=== PATIENT | female | born 1955 | race Caucasian/White ===

== ENCOUNTER → 2016-11-11 | Outpatient (CLI) | payer BC ==
--- NOTE | 2016-11-11 14:25 | MG ---
Examination: Bilateral diagnostic mammogram. Clinical history: Mastodynia, fibroadenosis bilateral breasts. Technique: Digital CC and MLO views of both breasts were obtained. Computer aided detection analysis was performed and used during the interpretation. Comparison: 04/01/2016. Findings: The breasts are composed of scattered fibroglandular densities. Benign-appearing calcifications are noted in the breasts bilaterally. No suspicious mass, area of architectural distortion or suspicious cluster of microcalcifications is noted. Impression: 1. No mammographic evidence of malignancy. BI-RADS category 2-benign findings. Recommend routine annual screening mammogram. Diagnostic CAD was utilized and reviewed. * 0 (ZERO) - ASSESSMENT INCOMPLETE; ADDITIONAL IMAGING IS NEEDED. * 0C - ASSESSMENT INCOMPLETE, NEEDS ADDITIONAL IMAGING EVALUATION AND/OR PRIOR MAMMOGRAMS FOR COMPAR TANIYA. * 1/1 (ONE) - NEGATIVE. * 2/II (TWO) - BENIGN FINDINGS. * 3/III (THREE) - PROBABLY BENIGN FINDING; SHORT INTERVAL FOLLOW-UP SUGGESTED. * 4/IV (FOUR) - SUSPICIOUS ABNORMALITY; BIOPSY SHOULD BE CONSIDERED. * 5/V - HIGHLY SUSPICIOUS OF MALIGNANCY; BIOPSY SHOULD BE PERFORMED. * 6/IV - KNOWN BIOPSY PROVEN MALIGNANCY-APPROPRIATE ACTION SHOULD BE TAKEN. A NEGATIVE X-RAY REPORT SHOULD NOT DELAY BIOPSY IF A DOMINANT OR CLINICALLY SUSPICIOUS MASS IS PRESENT; 4 TO 8 PERCENT OF CANCERS ARE NOT IDENTIFIED BY X-RAY. A NEGATIVE REPORT MAY REINFORCE THE CLINICAL IMPRESSION. ADENOSIS AND DENSE BREASTS MAY OBSCURE AN UNDERLYING NEOPLASM. Reported By:
== END ==
LOC: RAD 12:54
PROVIDERS: ATTEND Obstetrics & Gynecology
DX: N60.21 Fibroadenosis of right breast (principal); N60.22 Fibroadenosis of left breast; N64.4 Mastodynia
CPT/HCPCS: 77066

== ENCOUNTER → 2016-12-08 | Outpatient (CLI) | payer BC ==
--- NOTE | 2016-12-08 16:31 | MRI ---
MRI SPINE LUMBAR WITHOUT CONTRAST CLINICAL HISTORY: 61-year-old female with chronic low back pain and radicular symptoms. COMPARISON: MR lumbar spine June 18, 2015. Technique: Multiplanar, multisequence MRI images of the lumbar spine were obtained without the admi nistration of contrast. FINDINGS: The most caudad, fully-formed intervertebral disc will be labeled L5-S1 for the purpose of this dictation. Mild straightening of lumbar lordosis as imaged. Alignment is maintained. Schmorl's node inferior endplate L5 with loss of disc space and signal at L4-L5. Type 2 endplate changes L4-L 5 and to a lesser degree at L5-S1. Remaining vertebral marrow and disc signal are preserved.. Cord s ignal is normal. The conus medullaris is normal in signal characteristics and morphology and termina paxton at the L1 level. T11-T12: Imaged in the sagittal plane only without central canal or neural foraminal stenosis per T12-L1: No central canal or neural foraminal stenosis. L1-L2: No central canal or neural foraminal stenosis. Mild facet arthropathy. L2-L3: Mild bilateral facet arthropathy with thickened ligamentum flavum. No significant central can al or neural foraminal stenosis. L3-L4: Central hyperintensity within the annular fibers consistent with fissure. Symmetric disc bulg e that produces moderate to severe bilateral subarticular recess stenosis. This just contacts the ve ntral and dorsal aspect of the transiting right L4 nerve root. No significant central canal or socorro inal stenosis. L4-L5: Severe bilateral facet hypertrophy with thickened ligamentum flavum combines with symmetric d isc bulge to produce severe, left greater than right, bilateral subarticular recess stenosis and mod erate to severe left with mild to moderate right neural foraminal stenosis. The ventral and dorsal a spect of the exiting left L4 nerve root with the dorsal aspect of the exiting right L4 nerve root ar e contacted by the degenerative disc and thickened flavum. L5-S1: Severe bilateral facet hypertrophy with thickened ligamentum flavum with trace fluid in the r ight facet joint. Buckled and thickened ligamentum flavum engages the dorsal aspect of the exiting L 5 nerve roots, right greater the left, with mild contour deformity on the right. Paraspinous soft tissues are unremarkable. IMPRESSION: 1. Multilevel degenerative disease and spondyloarthropathy that is most severe at L3-L4 with contact of the transiting L4 nerve roots bilaterally. 2. At L4-L5 the exiting right L4 nerve root is contacted along the ventral and dorsal aspect. 3. Central annular fissure at L3-L4. 4. Contact of the exiting L5 nerve roots bilaterally at L5-S1. 5. See level by level descriptions above. Reported By:
== END ==
LOC: RAD 14:48
PROVIDERS: ATTEND Internal Medicine
DX: M51.16 Intervertebral disc disorders with radiculopathy, lumbar region (principal)
CPT/HCPCS: 72148

== ENCOUNTER → 2017-11-03 | Outpatient (CLI) | payer BC ==
--- NOTE | 2017-11-03 14:38 | CT ---
CT OF THE ABDOMEN AND PELVIS WITHOUT CONTRAST HISTORY: Left lower quadrant pain for 2 weeks Comparison: None Technique: Multiple axial images of the abdomen and pelvis were obtained from the lung bases to the pubic symphy sis without the administration of IV contrast. Dose reduction techniques including Automated Exposur e Control (AEC) and adjustment of mA and kV were utlized. Findings: The heart is normal in size. There is no pericardial effusion. Lung bases are clear without focal con solidation, pleural effusion or pneumothorax. The sensitivity for focal lesion detection within the solid abdominal viscera is diminished without t he use of IV contrast. Liver and spleen are normal in size, and contour. Hepatic steatosis without focal lesion. No ductal d ilitation. Gallbladder absent. The pancreas is unremarkable. Adrenal glands are normal. Kidneys are n ormal in contour without hydronephrosis or nephrolithiasis. No bowel obstruction or inflammation. No abnormal appearing mesenteric or retroperitoneal lymph node s. No free fluid or fluid collections. The bladder is normal in appearance. Uterus not well seen. No free fluid or abnormal pelvic lymph nod es. No aggressive osseous lesions. IMPRESSION: 1. No source of patient's left lower quadrant pain is identified on this examination. 2. Hepatic steatosis. Reported By:
== END | disposition home or self-care (01) ==
LOC: RAD 09:10
PROVIDERS: ATTEND Internal Medicine
DX: R10.13 Epigastric pain (principal); R10.32 Left lower quadrant pain; R10.12 Left upper quadrant pain; K76.0 Fatty (change of) liver, not elsewhere classified
CPT/HCPCS: 74176

== ENCOUNTER → 2017-11-12 | Outpatient (CLI) | payer BC ==
--- NOTE | 2017-11-12 12:40 | MG ---
HISTORY: SCREENING Comparison: Previous mammograms dated 11/11/2016 and 04/01/2016 FINDINGS: Bilateral CC and MLO projections of the right and left breast were obtained. Scattered fibroglandula r tissue is seen to be present. No significant architectural distortion, mass or clustered microcalc ifications can be observed to suggest malignancy. No skin thickening or nipple retraction is appreci ated. No pathological lymphadenopathy can be identified. Benign-appearing calcifications scattered throughout the right and left breasts are observed. IMPRESSION: NO RADIOGRAPHIC EVIDENCE OF MALIGNANCY. ACR CATEGORY: 2 - benign findings. FOLLOW-UP EXAM 1 YEAR. Diagnostic CAD was utilized and reviewed. * 0 (ZERO) - ASSESSMENT INCOMPLETE; ADDITIONAL IMAGING IS NEEDED. * 1/1 (ONE) - NEGATIVE. * 2/II (TWO) - BENIGN FINDINGS. * 3/III (THREE) - PROBABLY BENIGN FINDING; SHORT INTERVAL FOLLOW-UP SUGGESTED. * 4/IV (FOUR) - SUSPICIOUS ABNORMALITY; BIOPSY SHOULD BE CONSIDERED. * 5/V - HIGHLY SUSPICIOUS OF MALIGNANCY; BIOPSY SHOULD BE PERFORMED. A NEGATIVE X-RAY REPORT SHOULD NOT DELAY BIOPSY IF A DOMINANT OR CLINICALLY SUSPICIOUS MASS IS PRESENT; 4 TO 8 PERCENT OF CANCERS ARE NOT IDENTIFIED BY X-RAY. A NEGA TIVE REPORT MAY REINFORCE THE CLINICAL IMPRESSION. ADENOSIS AND DENSE BREASTS MAY OBSCURE AN UNDERLY ING NEOPLASM. Reported By:
== END ==
LOC: RAD 10:23
PROVIDERS: ATTEND Obstetrics & Gynecology
DX: Z12.31 Encounter for screening mammogram for malignant neoplasm of breast (principal)
CPT/HCPCS: 77067

== ENCOUNTER → 2017-12-21 | Outpatient (CLI) | payer BC ==
--- NOTE | 2017-12-21 11:41 | CT ---
Indication: Palpable abnormality left forehead x1 month Exam: CT head without contrast. Technique: Routine transaxial images were obtained through the brain without contrast. Findings: The ventricles are normal. No intracranial hemorrhage or edema is seen. There is mild periv entricular low density bilaterally. There is no extra-axial fluid collection or mass. The midline str uctures are unremarkable. The bones are intact. There is mild focal asymmetry of the soft tissues marshall ng the left frontal region, just above the orbit . There is a fairly homogeneous focal area of fat de nsity in the area measuring approximately 8 mm with no focal fluid collection or stranding in the are a. Impression: Mild chronic microischemic changes in the deep white matter with no acute abnormality seen. Mild asymmetry in the soft tissues along the left frontal region which is suspicious for a small 8 mm lipoma in the scalp. If there is persistent clinical concern for the area, suggest an MRI of the bra in with contrast for further characterization. Reported By:
== END ==
LOC: RAD 11:12
PROVIDERS: ATTEND Internal Medicine
DX: R22.0 Localized swelling, mass and lump, head (principal)
CPT/HCPCS: 70450